=== PATIENT | female | born 1990 | race Two or more races ===

== ENCOUNTER 2020-02-02 12:20 | Emergency (ER) | payer OTHER ==
[~2020-02-02] VITALS: Ht 172.7 cm; Wt 56.7 kg
[2020-02-02] MEDS ORDERED: NORFLEX100MG PO (15:15)
[2020-02-02] MEDS ORDERED: KETO10TA2 PO (15:15)
== END 2020-02-02 15:27 | disposition home or self-care (01) ==
LOC: ER 12:20
DX: M54.2 Cervicalgia (principal); M25.512 Pain in left shoulder

== ENCOUNTER 2021-02-11 10:38 | Emergency (ER) | payer OTHER ==
[~2021-02-11] VITALS: Ht 172.7 cm; Wt 59.0 kg
[~2021-02-11 10:38] MED LIST: KETO10TA2 PO; NORFLEX100MG PO
== END 2021-02-11 13:58 | disposition home or self-care (01) ==
LOC: ER 10:38
DX: S60.052A Contusion of left little finger without damage to nail, initial encounter (principal); W23.0XXA Caught, crushed, jammed, or pinched between moving objects, initial encounter; Y93.89 Activity, other specified; Y92.89 Other specified places as the place of occurrence of the external cause; Y99.8 Other external cause status

== ENCOUNTER 2022-01-19 10:40 | Emergency (ER) | payer OTHER ==
[~2022-01-19] VITALS: Ht 172.7 cm; Wt 59.0 kg
== END 2022-01-19 12:22 | disposition home or self-care (01) ==
LOC: ER 10:40
DX: H18.822 Corneal disorder due to contact lens, left eye (principal); Z88.0 Allergy status to penicillin; Z91.011 Allergy to milk products

== ENCOUNTER 2022-10-28 14:28 | Emergency (ER) | payer OTHER ==
[~2022-10-28] VITALS: Ht 172.7 cm; Wt 59.0 kg
== END 2022-10-28 19:19 | disposition home or self-care (01) ==
LOC: ER 14:28
DX: R10.32 Left lower quadrant pain (principal); Z88.0 Allergy status to penicillin; Z91.011 Allergy to milk products